=== PATIENT | female | born 1935 | race Caucasian/White ===

== ENCOUNTER 2024-03-19 14:31 | Emergency (ER) | payer MEDICARE, OTHER ==
[~2024-03-19] VITALS: Ht 157.5 cm; Wt 68.0 kg
[~2024-03-19 14:31] MED LIST: AZIT250T PO; LISI-222 PO; PRED5TAB PO
[2024-03-19 14:37] VITALS: BP 161/114; PULSE 89; RESP 18; TEMP 98.1; O2SAT 96
[2024-03-19 14:56] LABS: BILIRUBIN,URINE NEGATIVE (Neg); CLARITY,URINE CLOUDY (Clear); GLUCOSE, URINE NEGATIVE (Neg); KETONES,URINE NEGATIVE (Neg); LEUKOCYTE ESTERASE ,URINE LARGE (Neg); NITRITES, URINE NEGATIVE (Neg); OCCULT BLOOD,URINE MODERATE (Neg); PH,URINE 6.5 (4.8-8.0); PROTEIN,URINE TRACE mg/dl (Neg); UROBILINOGEN,URINE 0.2 E.U/dL (0.2-1.0)
[2024-03-19 15:03] LABS: COLOR,URINE STRAW (Yellow); UA COLLECTION TYPE VOIDED
[2024-03-19 15:04] LABS: WBC,URINE TNTC /HPF (0-4)
[2024-03-19 15:05] LABS: SQUAMOUS EPITHELIAL CELL,UR MODERATE /LPF (FEW)
[2024-03-19 15:06] LABS: BACTERIA,URINE 4+ /HPF (Neg)
[2024-03-19] MEDS ORDERED: PHEN-716 PO (15:25)
[2024-03-19] MEDS ORDERED: CEPH-585 PO (15:25)
== END 2024-03-19 15:52 | disposition home or self-care (01) ==
LOC: ER 14:31
DX: N39.0 Urinary tract infection, site not specified (principal); I10 Essential (primary) hypertension; M19.90 Unspecified osteoarthritis, unspecified site
CPT/HCPCS: 81001; 87077; 87088; 87186; 99283

== ENCOUNTER 2025-03-09 17:15 | Inpatient (IN) | payer MEDICARE, OTHER ==
[~2025-03-09] VITALS: Ht 157.5 cm; Wt 77.8 kg
[~2025-03-09 17:15] MED LIST changes: +APIX5TAB3 PO; -AZIT250T PO; +BISO10TA16 PO; +FURO40TA4 PO; -LISI-222 PO; +PANT40TA54 PO; -PRED5TAB PO; +SACU1TAB7 PO
[2025-03-09 17:49] LABS: BASOPHILS % (AUTO) 0.4 % (0-1); EOSINOPHILS % (AUTO) 0.8 % (0-6); HEMATOCRIT 30.7 % (35.0-45.0); HEMOGLOBIN 10.2 g/dl (12.0-16.0); LYMPHOCYTES % (AUTO) 18.7 % (21-51); MEAN CORPUSCULAR HEMOGLOBIN 29.6 PG (27.0-31.0); MEAN CORPUSCULAR HGB CONC 33.2 g/dL (33.0-36.5); MEAN CORPUSCULAR VOLUME 89.3 FL (78-98); MEAN PLATELET VOLUME 8.2 FL (7.4-10.4); MONOCYTES # (AUTO) 0.4 X10'3 (0-0.9); MONOCYTES % (AUTO) 6.7 % (2-12); NEUTROPHILS # (AUTO) 4.1 X10'3 (1.8-7.7); NEUTROPHILS % (AUTO) 73.4 % (42-75); PLATELET COUNT 158 X10'3 (140-440); RED BLOOD COUNT 3.44 X10'6 (4.20-5.60); RED CELL DISTRIBUTION WIDTH 15.8 % (11.5-14.5); WHITE BLOOD COUNT 5.6 X10'3 (4.5-11.0)
[2025-03-09 17:58] LABS: ALANINE AMINOTRANSFERASE 35 U/L (12-78); ALBUMIN 3.6 G/DL (3.4-5.0); ALBUMIN/GLOBULIN RATIO 1.2 (1.1-1.5); ALKALINE PHOSPHATASE 90 IU/L (46-116); ANION GAP 7 (8-16); ASPARTATE AMINO TRANSFERASE 24 U/L (10-37); BLOOD UREA NITROGEN 18 MG/DL (7-18); BUN/CREATININE RATIO 11.1 (10.0-20.0); CALCIUM 9.2 MG/DL (8.5-10.1); CHLORIDE 106 MMOL/L (99-107); CREATININE 1.62 MG/DL (0.40-0.90); GLUCOSE 125 MG/DL (70-104); POTASSIUM 3.8 MMOL/L (3.5-5.1); SODIUM 139 MMOL/L (135-145); TOTAL CARBON DIOXIDE 26.3 MMOL/L (24-32); TOTAL PROTEIN 6.6 G/DL (6.4-8.2); eCRCL 19 ML/MIN; eGFR 30 ML/MIN
[2025-03-09 18:06] LABS: PRO BRAIN NATRIURETIC PEPTIDE 12849 PG/ML (0-450)
[2025-03-09] MEDS: furosemide 10 MG/1 ML 10ml inj IV ONE (18:57)
[2025-03-09] MEDS: nitroGLYCERIN 0.2mg/hour patch TD ONE (18:58)
[2025-03-09] MEDS ORDERED: morphine 2 MG/ML inj. syringe IV PRN ×2 (19:50)
[2025-03-09] MEDS ORDERED: potassium Cl 40MEQ/1/2NS 520ml 520 ML IV PRN (19:50)
[2025-03-09] MEDS ORDERED: magnesium sulf-water 2g/50mL 50 ML IV PRN (19:50)
[2025-03-09] MEDS ORDERED: mag hydrox/Alum hydrox/simeth 30ml oral suspension PO PRN (19:50)
[2025-03-09] MEDS ORDERED: magnesium sulf-water 4G/100mL 100 ML IV PRN (19:50)
[2025-03-09] MEDS ORDERED: ondansetron/PF 4mg/2ml inj IV PRN (19:50)
[2025-03-09] MEDS ORDERED: magnesium Cl slow-release 64mg tablet PO PRN (19:50)
[2025-03-09] MEDS ORDERED: potassium Cl 20 mEq SR tablet PO PRN (19:50)
[2025-03-09] MEDS ORDERED: PERFLUTREN PROTEIN-A MICROSPHR (Optison) 0.22 MG/ML 3ML VIAL IV ONE (19:50)
[2025-03-09] MEDS: K and/or MAG REPLACEMENT MC SCH (20:00)
[2025-03-09] MEDS: docusate sod 100mg capsule PO SCH (20:00)
[2025-03-09] MEDS ORDERED: ipratropium/albuterol 3ml nebule NEB PRN (20:45)
[2025-03-09] MEDS: ipratropium/albuterol 3ml nebule NEB ONE (20:45)
[2025-03-09 21:20] VITALS: BP 185/119; PULSE 81; PULSE 87; RESP 38; TEMP 97.3; O2SAT 93
[2025-03-09 21:47] VITALS: RESP 38; O2SAT 93
[2025-03-09] MEDS: labetalol 20mg/4ml (5mg/ml) syringe IV ONE (22:35)
[2025-03-10] VITALS (8 sets, daily range): BP systolic 112–177; BP diastolic 66–109; PULSE 59–70; RESP 14–24; TEMP 97.2–98.3; O2SAT 90–96
[2025-03-10] MEDS: acetaminophen 325mg tablet PO PRN (00:09)
[2025-03-10 06:25] LABS: BASOPHILS % (AUTO) 0.4 % (0-1); EOSINOPHILS % (AUTO) 0.4 % (0-6); HEMATOCRIT 28.9 % (35.0-45.0); HEMOGLOBIN 9.6 g/dl (12.0-16.0); LYMPHOCYTES # (AUTO) 1.1 X10'3 (1.1-4.8); LYMPHOCYTES % (AUTO) 17.8 % (21-51); MEAN CORPUSCULAR HEMOGLOBIN 29.6 PG (27.0-31.0); MEAN CORPUSCULAR HGB CONC 33.2 g/dL (33.0-36.5); MEAN CORPUSCULAR VOLUME 89.4 FL (78-98); MEAN PLATELET VOLUME 8.2 FL (7.4-10.4); MONOCYTES # (AUTO) 0.5 X10'3 (0-0.9); NEUTROPHILS # (AUTO) 4.7 X10'3 (1.8-7.7); NEUTROPHILS % (AUTO) 73.4 % (42-75); PLATELET COUNT 143 X10'3 (140-440); RED BLOOD COUNT 3.24 X10'6 (4.20-5.60); RED CELL DISTRIBUTION WIDTH 16.2 % (11.5-14.5); WHITE BLOOD COUNT 6.3 X10'3 (4.5-11.0)
[2025-03-10 06:39] LABS: ALANINE AMINOTRANSFERASE 32 U/L (12-78); ALBUMIN 3.4 G/DL (3.4-5.0); ALBUMIN/GLOBULIN RATIO 1.2 (1.1-1.5); ALKALINE PHOSPHATASE 80 IU/L (46-116); ANION GAP 7 (8-16); ASPARTATE AMINO TRANSFERASE 21 U/L (10-37); BILIRUBIN,TOTAL 0.9 MG/DL (0.1-1.0); BLOOD UREA NITROGEN 21 MG/DL (7-18); BUN/CREATININE RATIO 12.1 (10.0-20.0); CALCIUM 9.3 MG/DL (8.5-10.1); CHLORIDE 106 MMOL/L (99-107); CREATININE 1.74 MG/DL (0.40-0.90); GLUCOSE 101 MG/DL (70-104); MAGNESIUM 1.6 MG/DL (1.5-2.4); POTASSIUM 4.1 MMOL/L (3.5-5.1); SODIUM 141 MMOL/L (135-145); TOTAL CARBON DIOXIDE 27.9 MMOL/L (24-32); TOTAL PROTEIN 6.3 G/DL (6.4-8.2); eCRCL 18 ML/MIN; eGFR 28 ML/MIN
[2025-03-10] MEDS: furosemide 20 MG/2 ML vial IV SCH (07:16)
[2025-03-10] MEDS: metoprolol succinate 25mg (24-HOUR) SR. Tablet PO SCH (07:17)
[2025-03-10] MEDS: apixaban 5mg tablet PO SCH (07:17)
[2025-03-10] MEDS: pantoprazole 40mg Tablet.DR PO SCH (07:17)
[2025-03-10 17:57] LABS: BILIRUBIN,URINE NEGATIVE (Neg); CLARITY,URINE CLEAR (Clear); COLOR,URINE YELLOW (Yellow); GLUCOSE, URINE NEGATIVE (Neg); KETONES,URINE NEGATIVE (Neg); LEUKOCYTE ESTERASE ,URINE TRACE (Neg); NITRITES, URINE NEGATIVE (Neg); OCCULT BLOOD,URINE TRACE-INTACT (Neg); PROTEIN,URINE NEGATIVE (Neg); UROBILINOGEN,URINE 0.2 E.U/dL (0.2-1.0)
[2025-03-10 18:05] LABS: UA COLLECTION TYPE NON-SPECIFIED
[2025-03-10 18:06] LABS: BACTERIA,URINE FEW /HPF (Neg); RBC,URINE 0-2 /HPF (0-2); SQUAMOUS EPITHELIAL CELL,UR MODERATE /LPF (FEW); TRANSITIONAL EPI CELLS,URINE FEW /HPF
[2025-03-10 18:17] LABS: TOTAL PROTEIN,URINE RANDOM 9.4 MG/DL
[2025-03-11] VITALS (9 sets, daily range): BP systolic 118–153; BP diastolic 44–102; PULSE 55–84; RESP 15–20; TEMP 96.8–98.3; O2SAT 92–96
[2025-03-11 06:26] LABS: BASOPHILS % (AUTO) 0.4 % (0-1); EOSINOPHILS # (AUTO) 0.1 X10'3 (0-0.9); EOSINOPHILS % (AUTO) 1.7 % (0-6); HEMATOCRIT 28.8 % (35.0-45.0); HEMOGLOBIN 9.5 g/dl (12.0-16.0); LYMPHOCYTES # (AUTO) 1.2 X10'3 (1.1-4.8); MEAN CORPUSCULAR HEMOGLOBIN 29.6 PG (27.0-31.0); MEAN CORPUSCULAR VOLUME 89.5 FL (78-98); MEAN PLATELET VOLUME 8.2 FL (7.4-10.4); MONOCYTES # (AUTO) 0.4 X10'3 (0-0.9); MONOCYTES % (AUTO) 8.3 % (2-12); NEUTROPHILS # (AUTO) 3.5 X10'3 (1.8-7.7); NEUTROPHILS % (AUTO) 66.6 % (42-75); PLATELET COUNT 143 X10'3 (140-440); RED BLOOD COUNT 3.22 X10'6 (4.20-5.60); RED CELL DISTRIBUTION WIDTH 15.9 % (11.5-14.5); WHITE BLOOD COUNT 5.3 X10'3 (4.5-11.0)
[2025-03-11 06:43] LABS: ALANINE AMINOTRANSFERASE 32 U/L (12-78); ALBUMIN 3.2 G/DL (3.4-5.0); ALBUMIN/GLOBULIN RATIO 1.2 (1.1-1.5); ALKALINE PHOSPHATASE 71 IU/L (46-116); ANION GAP 7 (8-16); ASPARTATE AMINO TRANSFERASE 24 U/L (10-37); BLOOD UREA NITROGEN 25 MG/DL (7-18); BUN/CREATININE RATIO 13.4 (10.0-20.0); CALCIUM 9.1 MG/DL (8.5-10.1); CHLORIDE 104 MMOL/L (99-107); CREATININE 1.87 MG/DL (0.40-0.90); GLUCOSE 82 MG/DL (70-104); MAGNESIUM 1.5 MG/DL (1.5-2.4); POTASSIUM 3.3 MMOL/L (3.5-5.1); SODIUM 141 MMOL/L (135-145); TOTAL CARBON DIOXIDE 29.6 MMOL/L (24-32); TOTAL PROTEIN 5.9 G/DL (6.4-8.2); eCRCL 17 ML/MIN; eGFR 25 ML/MIN
[2025-03-11] MEDS ORDERED: carvedilol 6.25mg tablet PO SCH (08:00)
[2025-03-11] MEDS: hyDRALAzine 10mg tablet PO SCH (08:24)
[2025-03-11] MEDS: isosorbide mononitrate 30mg tab.SR.24H PO SCH (08:25)
[2025-03-11] MEDS: potassium Cl 20 mEq SR tablet PO PRN (08:35)
[2025-03-11] MEDS: furosemide 40mg/4ml inj IV ONE (10:47)
[2025-03-11] MEDS: furosemide 40mg/4ml inj IV SCH (19:36)
[2025-03-12] VITALS (10 sets, daily range): BP systolic 122–156; BP diastolic 66–99; PULSE 53–75; RESP 13–17; TEMP 97.7–98.3; O2SAT 92–98
[2025-03-12 06:49] LABS: BASOPHILS % (AUTO) 0.7 % (0-1); EOSINOPHILS # (AUTO) 0.1 X10'3 (0-0.9); EOSINOPHILS % (AUTO) 2.1 % (0-6); HEMATOCRIT 32.6 % (35.0-45.0); HEMOGLOBIN 10.8 g/dl (12.0-16.0); LYMPHOCYTES # (AUTO) 1.4 X10'3 (1.1-4.8); LYMPHOCYTES % (AUTO) 23.1 % (21-51); MEAN CORPUSCULAR HEMOGLOBIN 29.5 PG (27.0-31.0); MEAN CORPUSCULAR HGB CONC 33.2 g/dL (33.0-36.5); MEAN CORPUSCULAR VOLUME 88.8 FL (78-98); MONOCYTES # (AUTO) 0.5 X10'3 (0-0.9); MONOCYTES % (AUTO) 8.7 % (2-12); NEUTROPHILS # (AUTO) 4.1 X10'3 (1.8-7.7); NEUTROPHILS % (AUTO) 65.4 % (42-75); PLATELET COUNT 184 X10'3 (140-440); RED BLOOD COUNT 3.68 X10'6 (4.20-5.60); WHITE BLOOD COUNT 6.3 X10'3 (4.5-11.0)
[2025-03-12 07:22] LABS: ALANINE AMINOTRANSFERASE 34 U/L (12-78); ALBUMIN 3.8 G/DL (3.4-5.0); ALBUMIN/GLOBULIN RATIO 1.3 (1.1-1.5); ALKALINE PHOSPHATASE 79 IU/L (46-116); ANION GAP 3 (8-16); ASPARTATE AMINO TRANSFERASE 26 U/L (10-37); BILIRUBIN,TOTAL 1.1 MG/DL (0.1-1.0); BLOOD UREA NITROGEN 26 MG/DL (7-18); BUN/CREATININE RATIO 13.8 (10.0-20.0); CALCIUM 9.3 MG/DL (8.5-10.1); CHLORIDE 102 MMOL/L (99-107); CREATININE 1.89 MG/DL (0.40-0.90); FERRITIN 124 NG/ML (8-252); GLUCOSE 97 MG/DL (70-104); MAGNESIUM 1.5 MG/DL (1.5-2.4); POTASSIUM 3.5 MMOL/L (3.5-5.1); SODIUM 139 MMOL/L (135-145); TOTAL CARBON DIOXIDE 33.9 MMOL/L (24-32); TOTAL PROTEIN 6.8 G/DL (6.4-8.2); eCRCL 17 ML/MIN; eGFR 25 ML/MIN
[2025-03-12] MEDS: hyDRALAzine 10mg tablet PO SCH (08:00)
[2025-03-12] MEDS: acetaZOLAMIDE IV 500mg inj IV ONE (13:07)
[2025-03-12] MEDS: furosemide 40mg/4ml inj IV SCH (15:23)
[2025-03-13 06:00] VITALS: BP 127/88; PULSE 60; RESP 13; TEMP 97.5; O2SAT 94
[2025-03-13 06:45] LABS: BASOPHILS % (AUTO) 0.4 % (0-1); EOSINOPHILS # (AUTO) 0.1 X10'3 (0-0.9); EOSINOPHILS % (AUTO) 2.2 % (0-6); HEMATOCRIT 34.4 % (35.0-45.0); HEMOGLOBIN 11.5 g/dl (12.0-16.0); LYMPHOCYTES # (AUTO) 1.7 X10'3 (1.1-4.8); LYMPHOCYTES % (AUTO) 26.5 % (21-51); MEAN CORPUSCULAR HEMOGLOBIN 29.5 PG (27.0-31.0); MEAN CORPUSCULAR HGB CONC 33.3 g/dL (33.0-36.5); MEAN CORPUSCULAR VOLUME 88.7 FL (78-98); MEAN PLATELET VOLUME 8.2 FL (7.4-10.4); MONOCYTES # (AUTO) 0.5 X10'3 (0-0.9); MONOCYTES % (AUTO) 8.4 % (2-12); NEUTROPHILS # (AUTO) 3.9 X10'3 (1.8-7.7); NEUTROPHILS % (AUTO) 62.5 % (42-75); PLATELET COUNT 206 X10'3 (140-440); RED BLOOD COUNT 3.88 X10'6 (4.20-5.60); RED CELL DISTRIBUTION WIDTH 15.5 % (11.5-14.5); WHITE BLOOD COUNT 6.3 X10'3 (4.5-11.0)
[2025-03-13 06:47] LABS: ALANINE AMINOTRANSFERASE 33 U/L (12-78); ALBUMIN 3.9 G/DL (3.4-5.0); ALBUMIN/GLOBULIN RATIO 1.2 (1.1-1.5); ALKALINE PHOSPHATASE 80 IU/L (46-116); ANION GAP 7 (8-16); ASPARTATE AMINO TRANSFERASE 25 U/L (10-37); BLOOD UREA NITROGEN 34 MG/DL (7-18); BUN/CREATININE RATIO 15.8 (10.0-20.0); CALCIUM 9.2 MG/DL (8.5-10.1); CHLORIDE 100 MMOL/L (99-107); CREATININE 2.15 MG/DL (0.40-0.90); GLUCOSE 97 MG/DL (70-104); MAGNESIUM 1.6 MG/DL (1.5-2.4); POTASSIUM 3.7 MMOL/L (3.5-5.1); SODIUM 141 MMOL/L (135-145); TOTAL CARBON DIOXIDE 34.3 MMOL/L (24-32); TOTAL PROTEIN 7.1 G/DL (6.4-8.2); eCRCL 15 ML/MIN; eGFR 22 ML/MIN
[2025-03-13] MEDS ORDERED: acetaZOLAMIDE IV 500mg inj IV SCH ×2 (08:00)
[2025-03-13 08:11] LABS: PRO BRAIN NATRIURETIC PEPTIDE 4319 PG/ML (0-450)
[2025-03-13 10:00] VITALS: BP 110/65; PULSE 67; RESP 16; TEMP 97.7; O2SAT 97
[2025-03-13] MEDS: normal saline 1000ml 1,000 ML IV SCH (10:02)
[2025-03-13] MEDS: apixaban 2.5mg tablet PO SCH (10:03)
[2025-03-13] MEDS: hyDRALAzine 10mg tablet PO SCH (10:04)
[2025-03-13] MEDS: magnesium hydroxide 30ml (MOM) UD suspension PO PRN (10:04)
[2025-03-13 11:25] VITALS: PULSE 73; RESP 18; O2SAT 94
[2025-03-13 12:30] VITALS: BP 98/63; PULSE 70; RESP 16; O2SAT 96
[2025-03-13] MEDS: lactose-reduced food (Ensure Enlive) - 237ml bottle PO SCH (17:00)
[2025-03-13 18:00] VITALS: BP 127/76; PULSE 56; RESP 15; TEMP 97.1; O2SAT 97
[2025-03-13 22:00] VITALS: BP 131/58; PULSE 92; RESP 16; TEMP 97.6; O2SAT 92
[2025-03-14 04:41] VITALS: PULSE 69; RESP 16; O2SAT 93
[2025-03-14 06:00] VITALS: BP 112/64; PULSE 76; RESP 15; TEMP 97.2; O2SAT 95
[2025-03-14 06:56] LABS: BASOPHILS % (AUTO) 0.5 % (0-1); EOSINOPHILS # (AUTO) 0.1 X10'3 (0-0.9); EOSINOPHILS % (AUTO) 1.4 % (0-6); HEMATOCRIT 31.8 % (35.0-45.0); HEMOGLOBIN 10.5 g/dl (12.0-16.0); LYMPHOCYTES # (AUTO) 1.7 X10'3 (1.1-4.8); LYMPHOCYTES % (AUTO) 26.4 % (21-51); MEAN CORPUSCULAR HEMOGLOBIN 29.3 PG (27.0-31.0); MEAN CORPUSCULAR VOLUME 88.7 FL (78-98); MEAN PLATELET VOLUME 8.1 FL (7.4-10.4); MONOCYTES # (AUTO) 0.6 X10'3 (0-0.9); MONOCYTES % (AUTO) 9.1 % (2-12); NEUTROPHILS # (AUTO) 3.9 X10'3 (1.8-7.7); NEUTROPHILS % (AUTO) 62.6 % (42-75); PLATELET COUNT 177 X10'3 (140-440); RED BLOOD COUNT 3.58 X10'6 (4.20-5.60); RED CELL DISTRIBUTION WIDTH 16.1 % (11.5-14.5); WHITE BLOOD COUNT 6.3 X10'3 (4.5-11.0)
[2025-03-14 07:15] LABS: ALANINE AMINOTRANSFERASE 25 U/L (12-78); ALBUMIN 3.4 G/DL (3.4-5.0); ALBUMIN/GLOBULIN RATIO 1.2 (1.1-1.5); ALKALINE PHOSPHATASE 71 IU/L (46-116); ANION GAP 7 (8-16); ASPARTATE AMINO TRANSFERASE 21 U/L (10-37); BILIRUBIN,TOTAL 0.7 MG/DL (0.1-1.0); BLOOD UREA NITROGEN 44 MG/DL (7-18); BUN/CREATININE RATIO 18.3 (10.0-20.0); CALCIUM 9.2 MG/DL (8.5-10.1); CHLORIDE 101 MMOL/L (99-107); CREATININE 2.41 MG/DL (0.40-0.90); GLUCOSE 88 MG/DL (70-104); POTASSIUM 3.8 MMOL/L (3.5-5.1); SODIUM 139 MMOL/L (135-145); TOTAL CARBON DIOXIDE 31.2 MMOL/L (24-32); TOTAL PROTEIN 6.3 G/DL (6.4-8.2); eCRCL 13 ML/MIN; eGFR 19 ML/MIN
[2025-03-14 09:43] LABS: BILIRUBIN,URINE NEGATIVE (Neg); CLARITY,URINE CLEAR (Clear); COLOR,URINE YELLOW (Yellow); GLUCOSE, URINE NEGATIVE (Neg); KETONES,URINE NEGATIVE (Neg); LEUKOCYTE ESTERASE ,URINE SMALL (Neg); NITRITES, URINE NEGATIVE (Neg); OCCULT BLOOD,URINE NEGATIVE (Neg); PH,URINE 8.5 (4.8-8.0); PROTEIN,URINE NEGATIVE (Neg); UROBILINOGEN,URINE 0.2 E.U/dL (0.2-1.0)
[2025-03-14 09:46] LABS: UA COLLECTION TYPE CLN CATCH MIDSTREAM
[2025-03-14 09:50] LABS: BACTERIA,URINE 1+ /HPF (Neg); MUCUS STRANDS FEW /LPF (Neg); SQUAMOUS EPITHELIAL CELL,UR MODERATE /LPF (FEW)
[2025-03-14 10:00] VITALS: BP 121/70; PULSE 70; RESP 16; TEMP 97.6; O2SAT 100
[2025-03-14 10:02] LABS: TOTAL PROTEIN,URINE RANDOM 27.5 MG/DL
[2025-03-14] MEDS ORDERED: METO-395 PO (10:14)
[2025-03-14] MEDS ORDERED: ISOS30TA84 PO (10:14)
[2025-03-14] MEDS ORDERED: APIX2.5T PO (10:14)
[2025-03-14] MEDS ORDERED: hyDRALAzine tablet PO (10:14)
[2025-03-14] MEDS ORDERED: FURO-150 PO (10:19)
[2025-03-14] MEDS ORDERED: ZAR2.5T PO (10:19)
[2025-03-14] MEDS: furosemide 40mg/4ml inj IV ONE (11:49)
[2025-03-14] MEDS: metolazone 2.5mg tablet PO ONE (11:50)
[2025-03-14 16:00] VITALS: BP_SYST 121; PULSE 60
[2025-03-15] MEDS ORDERED: metolazone 2.5mg tablet PO SCH (08:00)
[2025-03-15 08:13] LABS: COMPLEMENT C3, SERUM 106 mg/dL (82-167)
[2025-03-17 17:29] LABS: ANTINUCLEAR ANTIBODIES Negative (Negative)
== END 2025-03-14 17:13 | disposition home health service (06) | DRG 291 ==
LOC: ER 17:16 → ED HOLD 19:53 → ORTHO 4S 21:10
PROVIDERS: ADMIT Internal Medicine; ATTEND Nurse Practitioner Family
PROC: CT131ZZ Planar Nuclear Medicine Imaging of Kidneys, Ureters and Bladder using Technetium 99m (Tc-99m) (ICD-10-PCS; principal; 2025-03-14)
DX: I13.0 Hypertensive heart and chronic kidney disease with heart failure and stage 1 through stage 4 chronic kidney disease, or unspecified chronic kidney disease (principal); I50.33 Acute on chronic diastolic (congestive) heart failure; N17.0 Acute kidney failure with tubular necrosis; I48.0 Paroxysmal atrial fibrillation; K21.9 Gastro-esophageal reflux disease without esophagitis; N18.9 Chronic kidney disease, unspecified; I27.22 Pulmonary hypertension due to left heart disease; D64.9 Anemia, unspecified; E87.6 Hypokalemia; Z79.899 Other long term (current) drug therapy; Z79.01 Long term (current) use of anticoagulants; Z87.891 Personal history of nicotine dependence; Z88.8 Allergy status to other drugs, medicaments and biological substances
CPT/HCPCS: 36415; 71045; 76770; 78707; 80053; 81001; 82570; 82728; 83735; 83880; 84133; 84145; 84156; 84300; 84484; 84540; 85025; 86038; 86160; 86256; 87081; 87088; 87207; 93005; 94760; 96374; 96375; 97116; 97161; 97530; 99285; A6258; A9562; G0378; J1120; J1938; J1940; J3490; J7030